=== PATIENT | male | born 1950 | race Caucasian/White ===

== ENCOUNTER 2018-05-26 10:10 | Observation (INO) | payer OTHER ==
[2018-05-26] MEDS ORDERED: Morphine 4 MG/ML Syringe IVPUSH ONE (10:32)
[2018-05-26] MEDS ORDERED: Sodium Chloride 0.9% 10 ML Syringe FLUSH PRN (10:32)
[2018-05-26] MEDS ORDERED: Ondansetron 4 MG/2 ML SDV IVPUSH ONE (10:32)
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
[2018-05-26] MEDS ORDERED: Acetaminophen/HYDROcodone 325-10 MG Tab PO ONE (11:35)
[2018-05-26] MEDS ORDERED: Ibuprofen 600 MG Tab PO ONE (11:36)
--- NOTE | 2018-05-26 11:42 | CR ---
[id number] RAD/RAD Pelvis 1-2V; [id number] RAD/RAD Femur Left 2V; [id number] RAD/RAD Tibia Fibula Left Exam: RAD Tibia Fibula Left, RAD Femur Left 2V, RAD Pelvis 1-2V Indication:TRAUMA. Comparison: No prior imaging for comparison. Discussion: Pelvis demonstrates intact femoroacetabular articulations. Sacral iliac joints and pubic symphysis are also intact. 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 Spondylosis of the lower lumbar spine. No evidence of a pelvic fracture. Femur also remains intact. There is however a markedly comminuted fracture of the proximal tibia. Fracture involves the lateral tibial plateau, where there is extensive fracture combination with numerous displaced fragments, resulting in obliteration of the tibial plateau articular surface. Some of these fragments are depressed at least 18 mm from the articular surface. There is at least 36 mm of separation at the articular surface in the transverse dimension as well. At least one of the fracture lines extends into the proximal tibial metaphysis. Distal portions of the tibia and fibula appear intact. Impression: Extensively comminuted and displaced intra-articular fracture of the proximal tibia centered at the lateral tibial plateau. Femur and pelvis are intact. David Kilgore MD 05/26/18 0021 Thank you for allowing us to participate in the care of your patient.
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
--- NOTE | 2018-05-26 13:12 | CT ---
[id number] CT/CT Knee Left WO IV Exam: CT Knee Left WO IV Indication:TRAUMA. Comparison: Radiograph from today. Discussion: There is a multi fragmentary fracture of the proximal tibia. Fracture involves the lateral tibial plateau, where there is extensive fracture combination with numerous displaced fragments, resulting in destruction of the tibial plateau articular surface. There is impaction of the lateral tibia relative to the femur. Some of the bony fragments are depressed approximately 2 cm from the articular surface. There is a to 3.1 cm of separation at the articular surface in the transverse dimension as well. The fracture line extends into the proximal tibial metaphysis. There are no fractures involving the distal femur or the tibia. Large lipohemarthrosis of the knee. Extensive vascular calcifications. Impression: Multi fragmentary and displaced intra-articular fracture of the proximal tibia centered at the lateral tibial plateau as described above. Murray Leonard DO 05/26/18 0389 Thank you for allowing us to participate in the care of your patient.
[2018-05-26] MEDS: Morphine 2 MG/ML Syringe IVPUSH PRN ×2 (15:00→21:50)
[2018-05-26] MEDS: Sodium Chloride 0.9% 10 ML Syringe FLUSH PRN ×2 (15:02→21:52)
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
[2018-05-26] MEDS: Ondansetron 4 MG/2 ML SDV IV PRN (21:48)
[2018-05-26] MEDS ORDERED: Bupivacaine 0.5% 10 ML SDV INJECT ONE (22:00)
[2018-05-26] MEDS ORDERED: Lidocaine 2% with EPINEPHrine 1:200,000 20 ML SDV INJECT ONE (22:00)
[2018-05-26] MEDS ORDERED: Cyclobenzaprine 10 MG Tab PO PRN (22:05)
[2018-05-27] MEDS: Ondansetron 4 MG/2 ML SDV IV PRN (04:25)
[2018-05-27] MEDS: Morphine 2 MG/ML Syringe IVPUSH PRN ×3 (04:29→11:05)
[2018-05-27] MEDS: Sodium Chloride 0.9% 10 ML Syringe FLUSH PRN ×2 (04:39→11:06)
[2018-05-27 08:04] LABS: ANION GAP 20.6 mmol/L (5-15); CHLORIDE,CL 101 mmol/L (98-115); SODIUM,NA 139 mmol/L (136-145)
--- NOTE | 2018-05-27 09:00 | OR ---
DATE OF SURGERY: 05/26/2018 SURGEON: Arron Mobley MD PREOPERATIVE DIAGNOSIS: Left knee tibial fracture with large hemarthrosis causing pain. POSTOPERATIVE DIAGNOSIS: Left knee tibial fracture with large hemarthrosis causing pain. OPERATION PERFORMED: Aspiration of hemarthrosis to relieve pain and discomfort for the patient. Informed consent was obtained from the patient regarding this procedure. DESCRIPTION OF PROCEDURE: The procedure was conducted in a strict aseptic manner. The lateral aspect of the knee joint was prepped thoroughly, and then we anesthetized the needle tract with Xylocaine 1% using a 25-gauge needle. After that, we introduced an 18-gauge needle and aspirated approximately 35 to 40 mL of pure blood. We then instilled 10 mL of Marcaine 0.5%. The patient tolerated the procedure very well. He had moderate degree of relief of discomfort following the procedure. /[id number]/MODL
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
== END 2018-05-27 15:00 | disposition home or self-care (01) ==
LOC: KA.ED 10:10 → KA.MS 12:33
PROVIDERS: ADMIT Physician Assistant Medical; ATTEND Family Medicine
DX: S82.142A Displaced bicondylar fracture of left tibia, initial encounter for closed fracture (principal); Z87.891 Personal history of nicotine dependence; V03.90XA Pedestrian on foot injured in collision with car, pick-up truck or van, unspecified whether traffic or nontraffic accident, initial encounter; Y93.H1 Activity, digging, shoveling and raking
CPT/HCPCS: 20610; 36415; 70450; 71045; 72125; 72170; 73552; 73590; 73700; 80048; 85018; 85025; 96374; 96375; 96376; 99285; G0378; J2270; J2405; J3490